=== PATIENT | female | born 1965 | race Caucasian/White ===

== ENCOUNTER 2020-05-12 07:30 | Inpatient (IN) | payer OTHER ==
[~2020-05-12] VITALS: Ht 167.6 cm; Wt 122.5 kg
[~2020-05-12 07:30] MED LIST: CIPRO500 MG PO; DIOVAN160 M1; FLAGYL500MG PO; INTESTINEX680 M1 PO; LEVAQUIN750 MG PO; METFORMIN HCL500 MG; SYNTHROID88 MCG; XOPENEX0.63 MG/3 IH
[2020-05-12] MEDS ORDERED: COZAAR25 MG PO (09:12)
[2020-05-19] MEDS ORDERED: IBUPROFEN800 MG (09:31)
== END 2020-05-21 13:23 | DRG 470 ==
LOC: O/R 05-19 05:10 → SURH 05-19 07:00
PROVIDERS: ADMIT Orthopaedic Surgery; ATTEND Orthopaedic Surgery
PROC: 0SRD0J9 Replacement of Left Knee Joint with Synthetic Substitute, Cemented, Open Approach (ICD-10-PCS; principal; 2020-05-19 07:00)
DX: M17.12 Unilateral primary osteoarthritis, left knee (principal); D62 Acute posthemorrhagic anemia; E11.9 Type 2 diabetes mellitus without complications; I10 Essential (primary) hypertension

== ENCOUNTER 2021-06-24 16:57 | Emergency (ER) | payer OTHER ==
[~2021-06-24] VITALS: Ht 167.6 cm; Wt 127.0 kg
[~2021-06-24 16:57] MED LIST changes: +COZAAR25 MG PO; +IBUPROFEN800 MG
[2021-06-24] MEDS ORDERED: DICLOFENAC SODI75 MG PO (17:21)
[2021-06-24] MEDS ORDERED: NORFLEX100MG PO (17:21)
== END 2021-06-24 17:36 | disposition home or self-care (01) ==
LOC: ER 16:57
DX: M54.50 Low back pain, unspecified (principal); E11.9 Type 2 diabetes mellitus without complications; I10 Essential (primary) hypertension

== ENCOUNTER 2022-05-06 10:45 | Inpatient (IN) | payer OTHER ==
[~2022-05-06] VITALS: Ht 167.6 cm; Wt 127.0 kg
[~2022-05-06 10:45] MED LIST changes: +DICLOFENAC SODI75 MG PO; +NORFLEX100MG PO
[2022-05-06] MEDS ORDERED: JANUVIA50 MG PO (13:33)
[2022-05-06] MEDS ORDERED: ZESTRIL20 MG PO (13:33)
[2022-05-10] MEDS ORDERED: KETOROLAC60 MG/2 M1 (14:21)
[2022-05-10] MEDS ORDERED: ATORVASTATIN CA10 MG (14:21)
[2022-05-13] MEDS ORDERED: OXYC1TAB9 PO (10:51)
[2022-05-13] MEDS ORDERED: XARELTO10 M1 PO (10:51)
[2022-05-13] MEDS ORDERED: GABAPENTIN100 MG PO (10:51)
[2022-05-13] MEDS ORDERED: NORFLEX100MG PO (10:51)
== END 2022-05-13 15:20 | disposition home or self-care (01) | DRG 470 ==
LOC: ADM 10:45 → O/R 05-10 06:35 → SURG 05-10 06:35 → SURH 05-10 07:00 → CIR.AMB 05-10 10:45 → SURH 05-10 10:45 → EDSTATUS 05-10 10:45 → SURG 05-10 13:56 → MEDJ 05-11 13:35
PROVIDERS: ADMIT Orthopaedic Surgery; ATTEND Orthopaedic Surgery
PROC: 0SRC0J9 Replacement of Right Knee Joint with Synthetic Substitute, Cemented, Open Approach (ICD-10-PCS; principal; 2022-05-10 07:00)
DX: M17.11 Unilateral primary osteoarthritis, right knee (principal); M85.661 Other cyst of bone, right lower leg; I10 Essential (primary) hypertension; E03.9 Hypothyroidism, unspecified; E11.9 Type 2 diabetes mellitus without complications; Z20.822 Contact with and (suspected) exposure to COVID-19; Z96.651 Presence of right artificial knee joint

== ENCOUNTER 2022-11-10 08:08 | Outpatient (CLI) | payer OTHER ==
[~2022-11-10 08:08] MED LIST changes: +ATORVASTATIN CA10 MG; +GABAPENTIN100 MG PO; +JANUVIA50 MG PO; +KETOROLAC60 MG/2 M1; +OXYC1TAB9 PO; +XARELTO10 M1 PO; +ZESTRIL20 MG PO
== END 2022-11-10 08:12 | disposition home or self-care (01) ==
LOC: SONOGRAMA 08:08
PROVIDERS: ATTEND Pathology Anatomic Pathology & Clinical Pathology
DX: D34 Benign neoplasm of thyroid gland (principal); D44.0 Neoplasm of uncertain behavior of thyroid gland; E04.9 Nontoxic goiter, unspecified; E07.9 Disorder of thyroid, unspecified